=== PATIENT | male | born 1960 | race Caucasian/White ===

== ENCOUNTER 2021-05-18 21:43 | Emergency (ER) | payer BC ==
[2021-05-18] MEDS ORDERED: Ketorolac 15 MG/ML SDV IVPUSH ONE (23:06)
[2021-05-18] MEDS ORDERED: Lactated Ringers 1,000 ML IV ONE (23:07)
--- NOTE | 2021-05-18 23:11 | EDM.PDOC ---
ED HPI GENERAL MEDICAL PROBLEM - General Chief Complaint: Abdominal Pain Stated Complaint: ABDOMINAL PAIN Time Seen by Provider: 05/18/21 23:08 Source of Information: Reports: Patient History Limitations: Reports: No Limitations - History of Present Illness INITIAL COMMENTS - FREE TEXT/NARRATIVE: Patient is 61-year-old male presenting to the emergency room with a chief complaint of left lower quadrant abdominal pain. Duration of symptoms was 5 hours. Pain started after dinner this evening. Patient reports 1 episode of vomiting as well and feeling chills. Patient reports having similar pain about 1 week ago that lasted only 2 to 3 hours before resolving spontaneously. Patient reports no nausea at this time. No radiation of pain. No inventions performed prior to arrival. Otherwise, patient denies any diarrhea constipation. Denies any urinary symptoms. No prior history of diverticulitis or kidney stone. Left Lower Abdomen Pain Score (Numeric/FACES): 8 - Related Data Allergies Allergy/AdvReac Type Severity Reaction Status Date / Time No Known Allergies Allergy Verified 05/18/21 23:09 Home Meds: Home Meds Acetaminophen/oxyCODONE [Percocet 325-5 MG] 1 tab PO Q6H PRN #12 tab 05/19/21 [Rx] Ondansetron [Zofran ODT] 4 mg PO Q6H PRN #12 tab.dis 05/19/21 [Rx] Tamsulosin [Tamsulosin 24 Hr] 0.4 mg PO DAILY #14 cap.er 05/19/21 [Rx] ED ROS GENERAL - Review of Systems Review Of Systems: See Below Free Text/Narrative/Comment: In addition to that documented in the HPI above, the additional ROS was obtained: Constitutional: + chills Eyes: Denies vision changes ENMT: Denies sore throat CV: Denies chest pain Resp: Denies SOB GI: Per HPI : Denies painful urination MSK: Denies recent trauma Skin: Denies new rashes Neuro: Denies new numbness or tingling or weakness Endocrine: Denies unexpected weight loss Heme: Denies bleeding disorders ED EXAM, GI/ABD - Physical Exam Exam: See Below Text/Narrative:: I have reviewed the triage vital signs Const: Well nourished, well developed, appears stated age Eyes: Pupils Equal and reactive to light bilaterally, no conjunctival injection HENT: No signs of trauma or swelling, Neck supple without meningismus CV: Regular Rate Rhythm, Warm, well-perfused extremities RESP: Unlabored respiratory effort GI: soft, non-tender, non-distended, no masses MSK: No gross deformities appreciated Skin: Warm, dry. No rashes Neuro: Alert, [employer] II-XII grossly intact. Sensation and motor function of extremities grossly intact. Psych: Appropriate mood and affect. Course - Vital Signs Last Recorded V/S: Last Vital Signs Temp 36.2 C 05/18/21 22:29 Pulse 86 05/18/21 22:29 Resp 18 05/18/21 22:29 BP 163/107 H 05/18/21 22:29 Pulse Ox 98 05/18/21 22:29 - Orders/Labs/Meds Orders: Active Orders 24 hr Category Date Time Status Abdomen Pelvis w Cont [CT] Stat Exams 05/18/21 23:06 Taken Labs: Laboratory Tests 05/18/21 05/18/21 Range/Units 22:40 22:40 WBC 9.56 H (4.23-9.07) K/mm3 RBC 4.96 (4.63-6.08) M/mm3 Hgb 14.9 (13.7-17.5) gm/dl Hct 44.1 (40.1-51.0) % MCV 88.9 (79.0-92.2) fl MCH 30.0 (25.7-32.2) pg MCHC 33.8 (32.2-35.5) g/dl RDW Std Deviation 44.9 H (35.1-43.9) fL Plt Count 289 (163-337) K/mm3 MPV 9.0 L (9.4-12.3) fl Neut % (Auto) 81.5 H (34.0-67.9) % Lymph % (Auto) 11.1 L (21.8-53.1) % [place] % (Auto) 6.2 (5.3-12.2) % Eos % (Auto) 0.8 (0.8-7.0) Baso % (Auto) 0.2 (0.1-1.2) % Neut # (Auto) 7.79 H (1.78-5.38) K/mm3 Lymph # (Auto) 1.06 L (1.32-3.57) K/mm3 [place] # (Auto) 0.59 (0.30-0.82) K/mm3 Eos # (Auto) 0.08 (0.04-0.54) K/mm3 Baso # (Auto) 0.02 (0.01-0.08) K/mm3 Sodium 142 (136-145) mEq/L Potassium 4.1 (3.5-5.1) mEq/L Chloride 104 (98-107) mEq/L Carbon Dioxide 26 (21-32) mEq/L Anion Gap 16.1 H (5-15) BUN 15 (7-18) mg/dL Creatinine 1.3 (0.7-1.3) mg/dL Est Cr Clr Drug Dosing 66.32 mL/min Estimated GFR (MDRD) 56 (>60) mL/min BUN/Creatinine Ratio 11.5 L (14-18) Glucose 124 H (70-99) mg/dL Calcium 9.1 (8.5-10.1) mg/dL Total Bilirubin 0.8 (0.2-1.0) mg/dL AST 18 (15-37) U/L ALT 37 (16-63) U/L Alkaline Phosphatase 65 (46-116) U/L Total Protein 7.8 (6.4-8.2) g/dl Albumin 4.2 (3.4-5.0) g/dl Globulin 3.6 gm/dL Albumin/Globulin Ratio 1.2 (1-2) Meds: Medications Discontinued Medications Generic Name Dose Route Start Last Admin Trade Name Freq PRN Reason Stop Dose Admin Lactated Ringer's 1,000 mls @ 1,000 mls/hr 05/18/21 23:07 05/18/21 23:13 Ringers, Lactated IV 05/19/21 00:06 1,000 mls/hr .BOLUS ONE Administration Ketorolac Tromethamine 15 mg 05/18/21 23:06 05/18/21 23:13 Ketorolac 15 Mg/Ml Sdv IVPUSH 05/18/21 23:07 15 mg ONETIME ONE Administration Morphine Sulfate 4 mg 05/19/21 00:20 05/19/21 00:42 Morphine 4 Mg/Ml Syringe IVPUSH 05/19/21 00:21 4 mg ONETIME ONE Administration Departure - Departure Time of Disposition: 02:08 Disposition: Home, Self-Care 01 Clinical Impression: Ureteral calculus, left - Discharge Information Prescriptions: Tamsulosin [Tamsulosin 24 Hr] 0.4 mg PO DAILY #14 cap.er Acetaminophen/oxyCODONE [Percocet 325-5 MG] 1 tab PO Q6H PRN #12 tab PRN Reason: Pain (Severe 7-10) Ondansetron [Zofran ODT] 4 mg PO Q6H PRN #12 tab.dis PRN Reason: Nausea Instructions: Abdominal Pain, Adult, [id number] Referrals: Raymond Luther MD [Primary Care Provider] - Forms: ED Department Discharge Sepsis Event Note (ED) - Focused Exam Vital Signs: Vital Signs Temp Pulse Resp BP Pulse Ox 05/18/21 22:29 36.2 C 86 18 163/107 H 98 - My Orders Last 24 Hours: My Active Orders 05/18/21 23:06 Abdomen Pelvis w Cont [CT] Stat - Assessment/Plan Last 24 Hours: My Active Orders 05/18/21 23:06 Abdomen Pelvis w Cont [CT] Stat Assessment:: Patient is 61-year-old male presenting to the emergency room with a chief complaint of left lower quadrant abdominal pain. Patient unremarkable ER course. Patient pain was controlled with Toradol and morphine in the ER. Differential diagnosis considered for this patient include pyonephritis, nephrolithiasis, diverticulitis, incarcerated hernia. Based on patient's evaluation, laboratory studies and CT scan were ordered. Laboratory studies showed no evidence of UTI or kidney dysfunction. CT scan did show evidence of distal left ureteral stone with mild hydronephrosis. Patient was given these diagnoses and explained management of this disease. Patient's pain is currently controlled and he is comfortable with going home at this time. Patient will be discharged with pain medication as well as Flomax. Patient instructed to follow-up with urology in [place]. Return precautions discussed as usual. All questions were addressed and answered. Patient agrees with plan of care.
[2021-05-19] MEDS ORDERED: Morphine 4 MG/ML Syringe IVPUSH ONE (00:20)
--- NOTE | 2021-05-19 07:34 | CT ---
CT abdomen and pelvis Technique: Multiple axial sections were obtained from above the dome of the diaphragm inferiorly through the pubic symphysis. Intravenous and oral contrast were utilized. Delayed images were also obtained through the bladder. Reconstructed coronal and sagittal images were obtained. Comparison: No prior abdominal imaging is available. Findings: Slight inflammatory change is noted around the left kidney. Delayed enhancement of the left kidney is seen. Dilated left ureter is noted. Within the mid pelvis there is an obstructing left ureteral stone being seen measuring approximately 6 mm in greatest length. No other ureteral calculi are seen. No other renal calculi are appreciated. Delayed images show contrast within the distal right ureter and within the bladder. No significant contrast is seen within the left ureter. Visualized lung bases show nothing acute. Liver shows no focal abnormality. Spleen size is normal. Small amount of accessory splenic tissue is noted around the spleen. Contrast is noted within the distal esophagus compatible with gastroesophageal reflux. Adrenal glands show no nodule. There is a soft tissue mass being seen posterior to the stomach and slightly cephalad to the pancreas. This finding measures 5.0 cm x 2.5 cm x 2.2 cm. Uncertain as to etiology of this mass and whether it is off the stomach wall or represents an enlarged area of lymphadenopathy. This finding was not mentioned on preliminary report. Abdominal aorta shows no aneurysm. No retroperitoneal adenopathy is seen. No mesenteric abnormalities are seen. No pelvic mass or adenopathy is noted. Mild diverticuli are seen within the sigmoid colon with no findings of diverticulitis. Appendix is not visualized. Bone window settings were reviewed which show minimal degenerative change within the lower lumbar spine. No acute osseous finding is seen. Impression: 1. Obstructing calculus within the distal left ureter at the level of the mid pelvis measuring up to 6 mm causing proximal hydronephrosis. 2. Gastroesophageal reflux of contrast into the distal esophagus. 3. Masslike density between the stomach and pancreas of uncertain etiology. This could represent mass off the stomach wall or represent a focal area of adenopathy. Biopsy could be considered. If biopsy is not chosen, recommend repeat study in 6 weeks. Diagnostic code #9 I somewhat disagree with preliminary report from [facility] (upper abdominal mass as described above), finalized on 05/19/21, 2:49 AM CDT, code 4
== END 2021-05-19 02:15 | disposition home or self-care (01) ==
LOC: JD.ED 21:43
DX: N13.2 Hydronephrosis with renal and ureteral calculous obstruction (principal)
CPT/HCPCS: 36415; 74177; 80053; 85025; 96374; 96375; 99284; J1885; J2270; J7120